=== PATIENT | female | born 1965 | race Caucasian/White ===

== ENCOUNTER 2017-09-16 23:31 | Inpatient (IN) | payer BC, OTHER ==
[2017-09-17] MEDS: ONDANSETRON 4 MG INJ IV ×2 (01:50→12:01)
[2017-09-17] MEDS: morphine 4 MG/ML VIAL IV (01:50)
[2017-09-17] MEDS: PIPER-TAZO 3.375 GM IV (PMX) 100 ML IVPB (02:10)
[2017-09-17] MEDS: VANCOMYCIN 1 GM (PMX) 250 ML IVPB (02:29)
[2017-09-17 02:50] LABS: ADD MAN DIFF? NO
[2017-09-17 02:53] LABS: BASOPHIL # 0.1 10^3/ul (0.0-0.1); BASOPHILS % 0.9 % (0.0-2.0); EOSINOPHILS # 0.3 10^3/ul (0.0-0.5); HEMATOCRIT 40.6 % (37.0-47.0); HEMOGLOBIN 12.9 g/dl (12.0-16.0); LYMPHOCYTES # 1.9 10^3/ul (0.8-2.9); LYMPHOCYTES % 23.6 % (15.0-51.0); MEAN CORPUSCULAR HEMOGLOBIN 27.7 pg (29.0-33.0); MEAN CORPUSCULAR HGB CONC 31.8 g/dl (32.0-37.0); MEAN CORPUSCULAR VOLUME 87.1 fl (82.0-101.0); MEAN PLATELET VOLUME 9.9 fl (7.4-10.4); MONOCYTE # 0.6 10^3/ul (0.3-0.9); MONOCYTES % 7.6 % (0.0-11.0); NEUTROPHIL # 5.1 10^3/ul (1.6-7.5); NEUTROPHILS % 63.5 % (39.0-77.0); PLATELET COUNT 302 10^3/UL (140-415); RED BLOOD COUNT 4.66 10^6/ul (4.20-5.40)
[2017-09-17 03:17] LABS: ALANINE AMINOTRANSFERASE 29 IU/L (13-69); ALBUMIN 5.1 g/dl (3.3-4.9); ALKALINE PHOSPHATASE 92 IU/L (42-121); ANION GAP 17 (8-16); ASPARTATE AMINO TRANSFERASE 27 IU/L (15-46); BILIRUBIN,INDIRECT 0.5 mg/dl (0-1.1); BILIRUBIN,TOTAL 0.5 mg/dl (0.2-1.3); BLOOD UREA NITROGEN 9 mg/dl (7-20); CARBON DIOXIDE 31 mmol/L (21-31); CHLORIDE 101 mmol/L (97-110); CREATININE 0.66 mg/dl (0.44-1.00); GLUCOSE 96 mg/dl (70-220); LIPASE 120 U/L (23-300); POTASSIUM 3.9 mmol/L (3.5-5.1); SODIUM 145 mmol/L (135-144); TOTAL PROTEIN 8.5 g/dl (6.1-8.1)
[2017-09-17 04:54] LABS: ADD UMIC NO; UR ASCORBIC ACID NEGATIVE (NEGATIVE); UR BILIRUBIN (Dip) NEGATIVE (NEGATIVE); UR BLOOD (Dip) NEGATIVE (NEGATIVE); UR CLARITY CLEAR (CLEAR); UR COLOR STRAW (YELLOW); UR GLUCOSE (Dip) NEGATIVE (NEGATIVE); UR KETONES (Dip) NEGATIVE (NEGATIVE); UR LEUKOCYTE ESTERASE (Dip) NEGATIVE Leu/ul (NEGATIVE); UR NITRITE (Dip) NEGATIVE (NEGATIVE); UR SPECIFIC GRAVITY (Dip) 1.008 (1.003-1.030); UR TOTAL PROTEIN (Dip) NEGATIVE (NEGATIVE); UR UROBILINOGEN (Dip) NEGATIVE (NEGATIVE)
[2017-09-17] MEDS ORDERED: morphine 2 MG INJ IV (06:00)
[2017-09-17] MEDS ORDERED: DOCUSATE SODIUM 100 MG CAP PO (06:00)
[2017-09-17] MEDS ORDERED: ZOLPIDEM 5 MG TAB PO (06:00)
[2017-09-17] MEDS ORDERED: HYDROCODONE/APAP (5/325) TAB PO (06:00)
[2017-09-17] MEDS ORDERED: MAGNESIUM HYDROXIDE 30ML CUP PO (06:00)
[2017-09-17] MEDS ORDERED: NACL 0.9% 3 ML SYG IV (06:00)
[2017-09-17] MEDS ORDERED: VANCOMYCIN IV PER PHARMACY XX (06:00)
[2017-09-17] MEDS ORDERED: ACETAMINOPHEN 325 MG TAB PO (06:00)
[2017-09-17] MEDS ORDERED: VANCOMYCIN 1.5 GM in SOD CHLORIDE 0.9% 250 ML IVPB (07:00)
[2017-09-17] MEDS ORDERED: PENDING SANTYL ORDER FOR WOUND CARE XX (10:30)
[2017-09-17] MEDS: SUMATRIPTAN 25 MG TAB PO (10:37)
[2017-09-17] MEDS: VANCOMYCIN 1.25 GM in SOD CHLORIDE 0.9% 250 ML IVPB (10:38)
[2017-09-17] MEDS: ENOXAPARIN 40 MG/0.4 ML SYG SC (10:59)
[2017-09-17] MEDS: SUMATRIPTAN 6 MG/0.5 ML INJ SC (12:30)
[2017-09-17] MEDS ORDERED: morphine LIQ (10 MG/5 ML) CUP PO (15:30)
[2017-09-17] MEDS ORDERED: SUMATRIPTAN 50 MG TAB PO (17:00)
[2017-09-17] MEDS: TRIMETHOPRIM/SULFAMETHOX (DS) TAB PO (20:54)
[2017-09-18 06:21] LABS: ADD MAN DIFF? NO
[2017-09-18 06:33] LABS: BASOPHILS % 0.7 % (0.0-2.0); EOSINOPHILS # 0.2 10^3/ul (0.0-0.5); EOSINOPHILS % 3.7 % (0.0-7.0); HEMATOCRIT 36.6 % (37.0-47.0); HEMOGLOBIN 11.5 g/dl (12.0-16.0); LYMPHOCYTES # 1.7 10^3/ul (0.8-2.9); MEAN CORPUSCULAR HEMOGLOBIN 27.4 pg (29.0-33.0); MEAN CORPUSCULAR HGB CONC 31.4 g/dl (32.0-37.0); MEAN CORPUSCULAR VOLUME 87.1 fl (82.0-101.0); MEAN PLATELET VOLUME 9.8 fl (7.4-10.4); MONOCYTE # 0.5 10^3/ul (0.3-0.9); MONOCYTES % 7.7 % (0.0-11.0); NEUTROPHIL # 3.5 10^3/ul (1.6-7.5); NEUTROPHILS % 58.6 % (39.0-77.0); PLATELET COUNT 252 10^3/UL (140-415); RED CELL DISTRIBUTION WIDTH 12.9 % (11.5-14.5)
[2017-09-18 07:08] LABS: ANION GAP 14 (8-16); BLOOD UREA NITROGEN 11 mg/dl (7-20); CALCIUM 9.2 mg/dl (8.4-10.2); CARBON DIOXIDE 29 mmol/L (21-31); CHLORIDE 105 mmol/L (97-110); GLUCOSE 98 mg/dl (70-220); PHOSPHORUS 4.3 mg/dl (2.5-4.9); POTASSIUM 4.4 mmol/L (3.5-5.1); SODIUM 144 mmol/L (135-144)
[2017-09-18 07:16] LABS: HEMOGLOBIN A1C 5.7 % (0-5.9)
[2017-09-18] MEDS: ENOXAPARIN 40 MG/0.4 ML SYG SC (09:00)
[2017-09-18] MEDS: TRIMETHOPRIM/SULFAMETHOX (DS) TAB PO (09:24)
[2017-09-18] MEDS ORDERED: COLLAGENASE 5 GM (UD JAR) TOP ×2 (16:30)
== END 2017-09-18 17:30 | disposition home or self-care (01) | DRG 603 ==
LOC: E/R 23:31 → MS2 09-17 07:01
DX: L03.116 Cellulitis of left lower limb (principal); B95.62 Methicillin resistant Staphylococcus aureus infection as the cause of diseases classified elsewhere
CPT/HCPCS: 36415; 80048; 80053; 81003; 83036; 83690; 83735; 84100; 85025; 87040; 87070; 96374; 96375; 99285-25